=== PATIENT | male | born 1985 | race Caucasian/White ===

== ENCOUNTER 2019-09-24 19:17 | Emergency (ER) | payer BC ==
--- NOTE | 2019-09-24 19:44 | EDM.PDOC ---
ED HPI GENERAL MEDICAL PROBLEM - General Chief Complaint: Burn Stated Complaint: BURN Time Seen by Provider: 09/24/19 19:30 Source of Information: Reports: Patient History Limitations: Reports: No Limitations - History of Present Illness INITIAL COMMENTS - FREE TEXT/NARRATIVE: Patient presented to the ED because of a burn on the right wrist. He was cooking when a the oil splattered on his right wrist. Right Wrist Pain Score (Numeric/FACES): 4 - Related Data Allergies Allergy/AdvReac Type Severity Reaction Status Date / Time Penicillins Allergy Rash Verified 09/24/19 19:25 Home Meds: Home Meds traZODone HCl [Trazodone HCl] 25 mg PO BEDTIME PRN 09/24/19 [History] Past Medical History Psychiatric History: Reports: Depression Social & Family History - Family History Family Medical History: Noncontributory - Tobacco Use Smoking Status *Q: Never Smoker - Caffeine Use Caffeine Use: Reports: Coffee - Recreational Drug Use Recreational Drug Use: No ED ROS GENERAL - Review of Systems Review Of Systems: See Below Constitutional: Reports: No Symptoms HEENT: Reports: No Symptoms Respiratory: Reports: No Symptoms Cardiovascular: Reports: No Symptoms Endocrine: Reports: No Symptoms GI/Abdominal: Reports: No Symptoms Musculoskeletal: Reports: No Symptoms Skin: Reports: Erythema ED EXAM, BURN/SMOKE INHALATION - Physical Exam Exam: See Below Exam Limited By: No Limitations General Appearance: Alert, No Apparent Distress Ears (Abbreviated): Normal External Exam Head: No Symptoms Neck: No Symptoms, Normal, Supple Respiratory: No Respiratory Distress, Lungs Clear, Normal Breath Sounds Cardiovascular: Normal Peripheral Pulses, Regular Rate, Rhythm, No Edema, No Gallop GI/Abdominal: Normal Bowel Sounds, Soft, Non-Tender, No Organomegaly Back Exam: Normal Inspection, Full Range of Motion Extremities: Normal Inspection, Normal Range of Motion Neurological: Alert, Oriented, CN II-XII Intact, Normal Gait Skin Exam: Warm, Other (ist dergree burn along the right wrist area, and a small area with second degree burn) Course - Vital Signs Text/Narrative:: Tramadol 100 mg po x1 Ibuprofen 800 mg po x1 Viscous lidocaine top Bacitracin top Wet saline dressing Last Recorded V/S: Last Vital Signs Temp 36.8 C 09/24/19 19:26 Pulse 50 L 09/24/19 19:26 Resp 16 09/24/19 19:26 BP 126/85 09/24/19 19:26 Pulse Ox 98 09/24/19 19:26 - Orders/Labs/Meds Meds: Medications Discontinued Medications Generic Name Dose Route Start Last Admin Trade Name Jairo PRN Reason Stop Dose Admin Bacitracin 1 dose 09/24/19 19:35 09/24/19 20:07 Bacitracin Oint 1 Gm TOP 09/24/19 19:36 1 dose ONETIME ONE Administration Ibuprofen 800 mg 09/24/19 19:35 09/24/19 19:51 Motrin PO 09/24/19 19:36 800 mg ONETIME ONE Administration Lidocaine HCl 15 ml 09/24/19 19:38 09/24/19 19:51 Xylocaine 2% Viscous TOP 09/24/19 19:39 15 ml ONETIME ONE Administration Tramadol HCl 100 mg 09/24/19 19:35 09/24/19 19:52 Ultram PO 09/24/19 19:36 100 mg ONETIME ONE Administration Departure - Departure Time of Disposition: 20:20 Disposition: Home, Self-Care 01 Condition: Good Clinical Impression: Burn - Discharge Information Instructions: Burn Care, Adult, [id number] Referrals: Kim Santamaria REPAIRER AND CHECKER [Primary Care Provider] - Forms: ED Department Discharge Additional Instructions: Please read discharge instructions on smith Apply Neosporin 3 times daily for 10 days Take ibuprofen 800 mg with tylenol 800 mg every 8 hours as needed for pain Follow up as needed Sepsis Event Note (ED) - Evaluation Sepsis Screening Result: No Definite Risk - Focused Exam Vital Signs: Vital Signs Temp Pulse Resp BP Pulse Ox 09/24/19 19:26 36.8 C 50 L 16 126/85 98
[2019-09-24] MEDS: Lidocaine 2% Viscous Solution 15 ML Cup TOP ONE (19:51)
[2019-09-24] MEDS: Ibuprofen 800 MG Tab PO ONE (19:51)
[2019-09-24] MEDS: traMADol 50 MG Tab PO ONE (19:52)
[2019-09-24] MEDS: Bacitracin Oint 1 GM U/D Packet TOP ONE (20:07)
== END 2019-09-24 20:42 | disposition home or self-care (01) ==
LOC: FB.ED 19:17
DX: T23.271A Burn of second degree of right wrist, initial encounter (principal); F32.9 Major depressive disorder, single episode, unspecified; Z88.0 Allergy status to penicillin; Z79.899 Other long term (current) drug therapy; X10.2XXA Contact with fats and cooking oils, initial encounter
CPT/HCPCS: 16020; 99283; A9270

== ENCOUNTER 2020-12-11 09:27 | Emergency (ER) | payer BC ==
--- NOTE | 2020-12-11 10:26 | EDM.PDOC ---
ED HPI GENERAL MEDICAL PROBLEM - General Stated Complaint: FAST HEART RATE, DIZZINESS Time Seen by Provider: 12/11/20 09:35 Source of Information: Reports: Patient History Limitations: Reports: No Limitations - History of Present Illness INITIAL COMMENTS - FREE TEXT/NARRATIVE: Patient presented to the ED because of palpitations, dizziness at 0845 which lasted for 20 minutes. There is choking feeling, no chest pain, nausea or vomiting. He has a history of anxiety and use to take lexapro 10 mg daily. He quit taking it, he just took it for 1 year. - Related Data Allergies Allergy/AdvReac Type Severity Reaction Status Date / Time Penicillins Allergy Rash Verified 09/24/19 19:25 Home Meds: Home Meds traZODone HCl [Trazodone HCl] 25 mg PO BEDTIME PRN 09/24/19 [History] Past Medical History Psychiatric History: Reports: Depression Social & Family History - Family History Family Medical History: No Pertinent Family History - Caffeine Use Caffeine Use: Reports: Coffee ED ROS GENERAL - Review of Systems Review Of Systems: See Below Constitutional: Reports: No Symptoms HEENT: Reports: No Symptoms Respiratory: Reports: No Symptoms Cardiovascular: Reports: Palpitations Endocrine: Reports: No Symptoms GI/Abdominal: Reports: No Symptoms : Reports: No Symptoms Musculoskeletal: Reports: No Symptoms, Muscle Pain Neurological: Reports: Dizziness Psychiatric: Reports: No Symptoms ED EXAM, GENERAL - Physical Exam Exam: See Below Exam Limited By: No Limitations General Appearance: Alert, No Apparent Distress Eye Exam: Bilateral Eye: PERRL Ears: Normal External Exam, Normal Canal Nose: Normal Inspection, Normal Mucosa, No Blood Throat/Mouth: Normal Inspection, Normal Lips, Normal Teeth, Normal Gums, Normal Oropharynx, Normal Voice Head: Atraumatic, Normocephalic Neck: Normal Inspection, Supple, Non-Tender, Full Range of Motion Respiratory/Chest: No Respiratory Distress, Lungs Clear, Normal Breath Sounds, No Accessory Muscle Use, Chest Non-Tender Cardiovascular: Normal Peripheral Pulses, Regular Rate, Rhythm, No Edema, No Murmur GI/Abdominal: Normal Bowel Sounds, Soft, Non-Tender, No Organomegaly Back Exam: Normal Inspection, Full Range of Motion Extremities: Normal Inspection, Normal Range of Motion, Non-Tender, No Pedal Edema, Normal Capillary Refill #1 Interpretation EKG Date: 10/07/21 Time: 09:45 Rhythm: NSR Rate (Beats/Min): 63 [place]: Normal P-Wave: Present QRS: Normal ST-T: Normal QT: Normal WI/PQ Interval: 129 Comparison: NA - No Prior EKG EKG Interpretation Comments: NSR Course - Vital Signs Text/Narrative:: Lab/EKG result was reviewed and discussed with patient Last Recorded V/S: Last Vital Signs Temp 36.9 C 12/11/20 09:28 Pulse 61 12/11/20 09:28 Resp 20 12/11/20 09:28 BP 147/78 H 12/11/20 09:28 Pulse Ox 96 12/11/20 09:28 - Orders/Labs/Meds Labs: Laboratory Tests 12/11/20 12/11/20 Range/Units 10:18 10:18 WBC 4.2 (3.2-10.1) x10-3/uL RBC 4.51 (3.90-5.90) x10(6)uL Hgb 13.0 (12.9-17.7) g/dL Hct 39.1 (38.3-50.1) % MCV 86.8 (80.8-98.7) fL MCH 28.9 (27.0-33.3) pg MCHC 33.3 (28.7-35.3) g/dL RDW 12.5 (12.4-15.0) % Plt Count 189 (117-477) x10(3)uL MPV 8.1 (6.7-11.0) fL Neut % (Auto) 66.7 (40.3-71.8) % Lymph % (Auto) 24.0 (15.8-45.3) % [place] % (Auto) 7.6 (5.5-15.2) % Eos % (Auto) 1.0 (0.1-6.8) % Baso % (Auto) 0.7 (0.3-3.8) % Neut # (Auto) 2.8 (1.7-6.9) x10-3/uL Lymph # (Auto) 1.0 (0.5-4.5) x10-3/uL [place] # (Auto) 0.3 (0.0-1.2) x10-3/uL Eos # (Auto) 0.0 (0.0-0.6) x10-3/uL Baso # (Auto) 0.0 (0.0-0.3) x10-3/uL Sodium 143 (135-145) mmol/L Potassium 4.4 (3.5-5.3) mmol/L Chloride 106 (100-110) mmol/L Carbon Dioxide 31 (21-32) mmol/L BUN 11 (7-18) mg/dL Creatinine 0.9 (0.70-1.30) mg/dL Est Cr Clr Drug Dosing TNP Estimated GFR (MDRD) > 60 (>60) BUN/Creatinine Ratio 12.2 (9-20) Glucose 106 (80-116) mg/dL Calcium 9.1 (8.6-10.2) mg/dL Departure - Departure Time of Disposition: 10:20 Disposition: Home, Self-Care 01 Condition: Good Clinical Impression: Palpitations, Anxiety attack Instructions: Panic Attack, [id number], Palpitations Referrals: Kim Santamaria [employer] RECOVERY OPERATOR [Primary Care Provider] - Forms: ED Department Discharge Additional Instructions: Please read discharge on palpitations and anxiety Avoid caffeine, it can cause palpitations and flare up of anxiety Follow up as needed Sepsis Event Note (ED) - Focused Exam Vital Signs: Vital Signs Temp Pulse Resp BP Pulse Ox 12/11/20 09:28 36.9 C 61 20 147/78 H 96
== END 2020-12-11 11:00 | disposition home or self-care (01) ==
LOC: FB.ED 09:27
DX: F41.9 Anxiety disorder, unspecified (principal); Z88.0 Allergy status to penicillin
CPT/HCPCS: 36415; 80048; 85025; 99285-25